=== PATIENT | female | born 1975 | race Asian ===

== ENCOUNTER 2020-02-25 10:13 | Emergency (ER) | payer OTHER ==
[~2020-02-25] VITALS: Ht 154.9 cm; Wt 47.6 kg
[2020-02-25 10:26] VITALS: BP 154/91
== END 2020-02-25 11:53 | disposition home or self-care (01) ==
LOC: ER 10:13
DX: Z20.828 Contact with and (suspected) exposure to other viral communicable diseases (principal)
CPT/HCPCS: 99283; C9803; U0003

== ENCOUNTER 2020-03-04 07:31 | Emergency (ER) | payer OTHER ==
[~2020-03-04] VITALS: Ht 154.9 cm; Wt 47.6 kg
[2020-03-04 07:39] VITALS: BP 128/75
== END 2020-03-04 08:21 | disposition home or self-care (01) ==
LOC: ER 07:34
DX: Z20.828 Contact with and (suspected) exposure to other viral communicable diseases (principal); I10 Essential (primary) hypertension
CPT/HCPCS: 99283; C9803; U0003

== ENCOUNTER 2020-03-10 14:47 | Emergency (ER) | payer OTHER ==
[~2020-03-10] VITALS: Ht 154.9 cm; Wt 47.6 kg
[2020-03-10 14:51] VITALS: BP 131/67
--- NOTE | 2020-03-10 15:10 | NUR ---
COVID SWAB SENT, Patient discharged to home in stable condition. Written and verbal after care instructions given. Patient verbalizes understanding of instruction.
--- NOTE | 2020-03-11 22:12 | NUR ---
REC'D POS COVID RESULTS. AWARE
--- NOTE | 2020-03-11 22:30 | NUR ---
ATTEMPTED TO CONTACT [facility] REGARDING COVID RESULTS. NO ANSWER
== END 2020-03-10 15:11 | disposition home or self-care (01) ==
LOC: ER 14:48
DX: U07.1 COVID-19 (principal)
CPT/HCPCS: 99283; C9803; U0003